=== PATIENT | male | born 1975 | race Caucasian/White ===

== ENCOUNTER 2016-09-05 09:58 | Emergency (ER) | payer BC ==
[2016-09-05 10:07] VITALS: O2SAT 98
[2016-09-05] MEDS ORDERED: TORAdol 30 mg Injection IM ONE (10:14)
[2016-09-05] MEDS ORDERED: Norflex 60 MG/2 ML IM ONE (10:15)
[2016-09-05] MEDS ORDERED: TORAdol 30 mg Injection ONE (10:19)
[2016-09-05] MEDS ORDERED: Norflex 60 MG/2 ML ONE (10:19)
--- NOTE | 2016-09-05 10:21 | ERPHSYRPT ---
- History of Present Illness Time Seen by Provider: 09/05/16 10:15 Source: patient, family Exam Limitations: no limitations Patient Subjective Stated Complaint: rt lower back pain Triage Nursing Assessment: rt lower back pain since last night. states he reached out 'to far' to move a light shelf and twisted. 'it hurts so bad i just laugh' no other injury. no swelling or bruising noted. states when he sits the pain goes down his rt leg. Physician History: rt lower back pain started last night now c/o lots of pain radiate to anterior thigh, unable to be in any comfortable position. rt lower back pain since last night. states he reached out 'to far' to move a light shelf and twisted. 'it hurts so bad i just laugh' no other injury. no swelling or bruising noted. states when he sits the pain goes down his rt leg. Timing/Duration: yesterday Method of Injury: bending, lifting Quality: aching, cramping Back Pain Location: lumbar spine Back Pain Radiation: buttocks, upper legs Severity of Pain-Max: severe Severity of Pain-Current: severe Modifying Factors: Improves With: nothing Associated Symptoms: lower back pain, muscle spasms Previous symptoms: no prior history Allergies/Adverse Reactions: No Known Drug Allergies Allergy (Unverified 09/05/16 10:06) Home Medications: Nebivolol HCl [Bystolic] 5 mg PO DAILY 05/14/14 [History] Hx Tetanus, Diphtheria Vaccination/Date Given: Yes Hx Influenza Vaccination/Date Given: No Hx Pneumococcal Vaccination/Date Given: No Immunizations Up to Date: Yes - Review of Systems Constitutional: No Fever, No Chills Eyes: No Symptoms Ears, Nose, & Throat: No Symptoms Respiratory: No Cough, No Dyspnea Cardiac: No Chest Pain, No Edema, No Syncope Abdominal/Gastrointestinal: No Abdominal Pain, No Nausea, No Vomiting, No Diarrhea Genitourinary Symptoms: No Dysuria Musculoskeletal: Back Pain, No Neck Pain Skin: No Rash Neurological: No Dizziness, No Focal Weakness, No Sensory Changes Psychological: No Symptoms Endocrine: No Symptoms All Other Systems: Reviewed and Negative - Past Medical History Pertinent Past Medical History: Yes Cardiac History: Hypertension - Past Surgical History Past Surgical History: Yes Gastrointestinal: Hemorrhoidectomy - Social History Smoking Status: Never smoker Exposure to second hand smoke: No Drug Use: none Patient Lives Alone: No - Nursing Vital Signs Temperature: 98.1 F Temperature Source: Oral Pulse Rate: 67 Respiratory Rate: 18 Pain Intensity: 10 - Physical Exam General Appearance: no apparent distress, alert Eye Exam: PERRL/EOMI, eyes nml inspection Neck Exam: normal inspection, non-tender, supple, full range of motion, No meningismus, No midline tenderness Respiratory Exam: normal breath sounds, lungs clear, No respiratory distress Cardiovascular Exam: regular rate/rhythm, normal heart sounds Gastrointestinal Exam: soft, No tenderness, No mass Back Exam: decreased range of motion, muscle spasm Extremity Exam: normal inspection, normal range of motion, No calf tenderness, No pedal edema Neurologic Exam: alert, oriented x 3, cooperative, 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 tested, normal mood/affect, nml station & gait, sensation nml, No motor deficits Skin Exam: normal color, warm, dry, No rash SpO2: 98 Oxygen Delivery: Room Air - Course Nursing assessment & vital signs reviewed: Yes Ordered Tests: Medication Summary Discontinued Medications Generic Name Dose Route Start Last Admin Trade Name Bony PRN Reason Stop Dose Admin Ketorolac Tromethamine 60 mg 09/05/16 10:14 Toradol 30 Mg Injection IM 09/05/16 10:15 STAT ONE Ketorolac Tromethamine Confirm 09/05/16 10:19 Toradol 30 Mg Injection Administered 09/05/16 10:20 Dose 60 mg .ROUTE .STK-MED ONE Orphenadrine Citrate 60 mg 09/05/16 10:15 Norflex 60 Mg/2 Ml IM 09/05/16 10:16 STAT ONE Orphenadrine Citrate Confirm 09/05/16 10:19 Norflex 60 Mg/2 Ml Administered 09/05/16 10:20 Dose 60 mg .ROUTE .STK-MED ONE - Progress Progress: improved, pain not gone completely Counseled pt/family regarding: diagnosis, need for follow-up - Departure Time of Disposition: 10:18 Departure Disposition: Home Clinical Impression: Lumbalgia Qualifiers: Chronicity: acute Back pain laterality: right Sciatica presence: with sciatica Sciatica laterality: sciatica of right side Qualified Code(s): M54.41 - Lumbago with sciatica, right side Condition: Stable Critical Care Time: No Referrals: HIRAM HERNANDEZ MD [Primary Care Provider] - Instructions: Low Back Pain, Back Pain With Sciatica Additional Instructions: BACK INJURY 1. May apply moist heat frequently for relief of pain. Take care not to burn the skin. Do not use heat for more than 30 minutes at a time. 2. Try to sleep on a firm bed, flat on your back. 3. If no improvement is noticed in 2-3 days, follow up with your family physician. 4. If you notice any numbness, tingling, weakness, or problems with your bowel or bladder, you should call your family physician or return to the emergency department.take your meds as prescribed, follow up with your primary care physician in 2-3 days if not better Forms: Work/School Release Form Prescriptions: Cyclobenzaprine HCl 10 mg PO TID #30 tablet Naproxen 375 mg [Naprosyn 375 mg] 375 mg PO Q8H #30 tablet
[2016-09-05 10:46] VITALS: BP 141/75; PULSE 68
== END 2016-09-05 10:44 | disposition home or self-care (01) ==
LOC: ED 09:58
DX: M54.41 Lumbago with sciatica, right side (principal); M54.5 Low back pain; M62.830 Muscle spasm of back; I10 Essential (primary) hypertension
CPT/HCPCS: 96372; 99284; J1885; J2360

== ENCOUNTER 2017-05-16 16:49 | Emergency (ER) | payer BC ==
[2017-05-16] MEDS ORDERED: Sodium Chloride 0.9% 1000 ML 1,000 ML IV STA ×2 (17:09→17:12)
--- NOTE | 2017-05-16 17:17 | ERPHSYRPT ---
- History of Present Illness Time Seen by Provider: 05/16/17 17:02 Source: patient Exam Limitations: no limitations Patient Subjective Stated Complaint: Pt states "When I woke up this morning my heart feels like it is racing and I thought I should get it checked out." Triage Nursing Assessment: Pt alert and oriented X 3, skin pwd. Pt ambulates with an upright steady gait, able to speak in clear full sentences. No apparent respiratory distress. Physician History: PT STATES WHEN HE GOT UP FROM SLEEPING ABOUT 4 HOURS AGO HE NOTICED HIS HEART RATE WAS FAST AND HE WAS SLIGHTLY SHORT OF AIR; DENIES CHEST PAIN, FEVER, ABDOMINAL PAIN, NAUSEA, VOMITING, DIAPHORESIS; ADMITS TO A HEADACHE FOR THE PAST 2 WEEKS. Allergies/Adverse Reactions: No Known Drug Allergies Allergy (Unverified 09/05/16 10:06) Home Medications: Nebivolol HCl [Bystolic] 5 mg PO DAILY 05/14/14 [History] Lisdexamfetamine Dimesylate [Vyvanse] 30 mg PO DAILY 05/16/17 [History] Hx Tetanus, Diphtheria Vaccination/Date Given: Yes Hx Influenza Vaccination/Date Given: No Hx Pneumococcal Vaccination/Date Given: No Immunizations Up to Date: Yes - Review of Systems Constitutional: No Fever Respiratory: Dyspnea Cardiac: Other (TACHYCARDIA) Abdominal/Gastrointestinal: No Abdominal Pain, No Nausea, No Vomiting Neurological: Headache Endocrine: No Excessive Sweating All Other Systems: Reviewed and Negative - Past Medical History Pertinent Past Medical History: Yes Cardiac History: Hypertension - Past Surgical History Past Surgical History: Yes Gastrointestinal: Hemorrhoidectomy - Social History Smoking Status: Former smoker Exposure to second hand smoke: No Drug Use: none Patient Lives Alone: No - Nursing Vital Signs Nursing Vital Signs: Initial Vital Signs Temperature 97.7 F 05/16/17 16:53 Pulse Rate 92 H 05/16/17 16:53 Respiratory Rate 16 05/16/17 16:53 Blood Pressure 116/77 05/16/17 16:53 O2 Sat by Pulse Oximetry 97 05/16/17 16:53 Pain Scale Pain Intensity 0 - Physical Exam General Appearance: alert Eye Exam: PERRL/EOMI Ears, Nose, Throat Exam: TMs normal, pharynx normal, dry mucous membranes Neck Exam: normal inspection Respiratory Exam: lungs clear Cardiovascular Exam: normal heart sounds Gastrointestinal/Abdomen Exam: soft, normal bowel sounds Extremity Exam: normal inspection, No pedal edema Neurologic Exam: alert, cooperative Skin Exam: warm, dry SpO2 Interpretation: normal SpO2: 97 Oxygen Delivery: Room Air - Course Nursing assessment & vital signs reviewed: Yes EKG Interpreted by Me: RATE ([id number]), Sinus Tach, NORMAL AXIS, NORMAL QRS - Radiology Exams Chest X-ray Interpretation: Interpreted by me, No Pneumonia Ordered Tests: Active Orders 24 hr Category Date Time Status 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 Care 05/16/17 17:10 Active EKG-ER Only STAT Care 05/16/17 17:09 Active IV Insertion STAT Care 05/16/17 17:09 Active Oxygen-ED Only NASAL CANNULA 2 lpm Care 05/16/17 17:09 Active Pulse Oximetry (ED) STAT Care 05/16/17 17:09 Active CHEST 2 VIEWS (PA AND LAT) Stat Exams 05/16/17 17:10 Taken HEAD WITHOUT CONTRAST [CT] Stat Exams 05/16/17 17:26 Taken AMYLASE Urgent Lab 05/16/17 16:15 Completed CBC W DIFF Stat Lab 05/16/17 16:15 Completed CMP Urgent Lab 05/16/17 16:15 Completed D-DIMER QUANTITATION Stat Lab 05/16/17 16:15 Completed LIPASE Urgent Lab 05/16/17 16:15 Completed MAGNESIUM Urgent Lab 05/16/17 16:15 Completed NT PRO BNP Urgent Lab 05/16/17 16:15 Completed PROTIME WITH INR Stat Lab 05/16/17 16:15 Completed PTT Stat Lab 05/16/17 16:15 Completed T4 Urgent Lab 05/16/17 16:15 Completed TROPONIN Q3H Lab 05/16/17 16:15 Completed TROPONIN Q3H Lab 05/16/17 20:15 Ordered TROPONIN Q3H Lab 05/16/17 23:15 Ordered TROPONIN Q3H Lab 05/17/17 02:15 Ordered TROPONIN Q3H Lab 05/17/17 05:15 Ordered TSH, 3RD Generation Urgent Lab 05/16/17 16:15 Completed UA W/RFX UR CULTURE Stat Lab 05/16/17 17:09 Ordered Urine Triage Profile Stat Lab 05/16/17 17:11 Ordered Medication Summary Discontinued Medications Generic Name Dose Route Start Last Admin Trade Name Freq PRN Reason Stop Dose Admin Hydromorphone HCl 1 mg 05/16/17 17:23 Hydromorphone 1 Mg/Ml Ampule IV 05/16/17 17:24 STAT ONE Hydromorphone HCl Confirm 05/16/17 17:29 Hydromorphone 1 Mg/Ml Ampule Administered 05/16/17 17:30 Dose 1 mg .ROUTE .STK-MED ONE Sodium Chloride 1,000 mls @ 999 mls/hr 05/16/17 17:09 05/16/17 17:51 Sodium Chloride 0.9% 1000 Ml IV 05/16/17 18:09 999 mls/hr .Q1H1M STA Administration Sodium Chloride 1,000 mls @ 999 mls/hr 05/16/17 17:12 Sodium Chloride 0.9% 1000 Ml IV 05/16/17 18:12 .Q1H1M STA Sodium Chloride Confirm 05/16/17 17:29 Sodium Chloride 0.9% 1000 Ml Administered 05/16/17 17:30 Dose 2,000 mls @ ud .ROUTE .STK-MED ONE Promethazine HCl 12.5 mg 05/16/17 17:23 Phenergan 25 Mg Inj IV 05/16/17 17:24 STAT ONE Promethazine HCl Confirm 05/16/17 17:29 Phenergan 25 Mg Inj Administered 05/16/17 17:30 Dose 25 mg .ROUTE .STK-MED ONE Lab/Rad Data: Laboratory Result Diagrams 05/16/17 16:15 05/16/17 16:15 Laboratory Results 05/16/17 05/16/17 05/16/17 Range/Units 16:15 16:15 16:15 WBC 6.2 (4.0-10.5) K/mm3 RBC 4.88 (4.1-5.6) M/mm3 Hgb 15.1 (12.5-18.0) gm/dl Hct 44.1 (42-50) % MCV 90.4 (78-100) fl MCH 30.9 (26-32) pg MCHC 34.2 (32-36) g/dl RDW 12.2 (11.5-14.0) % Plt Count 196 (150-450) K/mm3 MPV 10.9 H (6-9.5) fl Gran % 57.9 (36.0-66.0) % Lymphocytes % 30.9 (24.0-44.0) % Monocytes % 8.4 (0.0-12.0) % Eosinophils % 2.3 (0.00-5.0) % Basophils % 0.5 (0.0-0.4) % Basophils # 0.03 (0-0.4) INR 0.99 (0.8-3.0) APTT 26.5 (24.1-36.1) SECONDS D-Dimer < 215 (0-500) ng/mL Sodium 143 (136-145) mEq/L Potassium 4.4 (3.5-5.1) mEq/L Chloride 106 (98-107) mEq/L Carbon Dioxide 28.1 (21-32) mEq/L Anion Gap 13.7 (5-15) MEQ/L BUN 10 (9-20) mg/dL Creatinine 1.03 (0.55-1.30) mg/dl Estimated GFR > 60 ML/MIN Glucose 99 (70-110) MG/DL Calcium 9.0 (8.5-10.1) mg/dL Magnesium 1.9 (1.8-2.4) mg/dL Total Bilirubin 0.40 (0.2-1.0) mg/dL AST 35 (15-37) U/L ALT 53 (12-78) U/L Alkaline Phosphatase 74 (46-116) U/L Troponin I < 0.017 (0.000-0.056) ng/ml NT-Pro-B Natriuret Pep 75 (0-125) pg/ml Serum Total Protein 7.0 (6.4-8.2) gm/dL Albumin 4.0 (3.4-5.0) g/dL Amylase 35 (25-115) U/L Lipase 209 (73-393) U/L Thyroxine (T4) 6.8 (4.7-13.3) UG/DL TSH 3rd Generation 2.073 (0.358-3.740) mIU/L - Departure Time of Disposition: 18:38 Departure Disposition: Home Clinical Impression: TACHYCARDIA - RESOLVED Condition: Stable Critical Care Time: No Referrals: HIRAM HERNANDEZ MD [Primary Care Provider] - Instructions: Tachycardia Additional Instructions: STOP VYVANSE. AVOID CAFFEINE. FOLLOW UP WITH PRIVATE DOCTOR TOMORROW.
[2017-05-16] MEDS ORDERED: Hydromorphone 1 mg/ml Ampule IV ONE (17:23)
[2017-05-16] MEDS ORDERED: Phenergan 25 MG INJ IV ONE (17:23)
[2017-05-16] MEDS ORDERED: Sodium Chloride 0.9% 1000 ML 2,000 ML ONE (17:29)
[2017-05-16] MEDS ORDERED: Hydromorphone 1 mg/ml Ampule ONE (17:29)
[2017-05-16] MEDS ORDERED: Phenergan 25 MG INJ ONE (17:29)
[2017-05-16 17:51] LABS: BASOPHIL % 0.5 % (0.0-0.4); Basophil (Absolute #) 0.03 (0-0.4); Eosinophil % 2.3 % (0.00-5.0); Eosinophil (Absolute #) 0.14 (0-0.5); Granulocyte Absolute (ANC) 3.58 (1.4-6.9); Granulocytes % 57.9 % (36.0-66.0); Hematocrit 44.1 % (42-50); Hemoglobin 15.1 gm/dl (12.5-18.0); Lymphocyte (Absolute #) 1.91 (1.0-4.6); Lymphocytes % 30.9 % (24.0-44.0); Mean Cell Volume 90.4 fl (78-100); Mean Corpuscular Hemoglobin 30.9 pg (26-32); Mean Corpuscular Hgb Concent. 34.2 g/dl (32-36); Mean Platelet Volume 10.9 fl (6-9.5); Monocyte (Absolute #) 0.52 (0.0-1.3); Monocytes % 8.4 % (0.0-12.0); Platelet Count 196 K/mm3 (150-450); Red Blood Count 4.88 M/mm3 (4.1-5.6); Red Cell Distribution Width 12.2 % (11.5-14.0); White Blood Count 6.2 K/mm3 (4.0-10.5)
[2017-05-16 17:53] LABS: INR 0.99 (0.8-3.0)
[2017-05-16 17:55] LABS: PTT 26.5 SECONDS (24.1-36.1)
[2017-05-16 18:13] LABS: D-DIMER QUANTITATION < 215 ng/mL (0-500)
[2017-05-16 18:20] LABS: ALKALINE PHOSPHATASE 74 U/L (46-116); AMYLASE 35 U/L (25-115); ANION GAP 13.7 MEQ/L (5-15); BLOOD UREA NITROGEN 10 mg/dL (9-20); CHLORIDE 106 mEq/L (98-107); Carbon Dioxide 28.1 mEq/L (21-32); Creatinine 1 1.03 mg/dl (0.55-1.30); EST GLOMERULAR FILTRATION RATE > 60 ML/MIN; Glucose 99 MG/DL (70-110); LIPASE 209 U/L (73-393); MAGNESIUM 1.9 mg/dL (1.8-2.4); NT PRO BNP 75 pg/ml (0-125); Potassium 4.4 mEq/L (3.5-5.1); SGOT/AST 35 U/L (15-37); SGPT/ALT 53 U/L (12-78); SODIUM 143 mEq/L (136-145); T4 6.8 UG/DL (4.7-13.3); TSH, 3RD Generation 2.073 mIU/L (0.358-3.740)
[2017-05-16 18:21] LABS: TROPONIN < 0.017 ng/ml (0.000-0.056)
[2017-05-16 18:47] VITALS: BP 122/72; PULSE 98; O2SAT 98
--- NOTE | 2017-05-16 21:14 | XRAY ---
Indication: Chest pain. Tachycardia. Comparison: None PA/lateral chest demonstrates normal heart, lungs, and bony thorax with incidental scattered calcified granulomas.
--- NOTE | 2017-05-16 21:16 | XRAY ---
Indication: Headache. Tachycardia. Multiple contiguous axial images obtained through the head without contrast. Comparison: None Normal appearing brain parenchyma, ventricles, and bony calvarium. Visualized paranasal sinuses and mastoid air cells are clear. Impression: Normal CT head without contrast exam. Comment: Preliminary interpretation was made by [facility]. No discrepancy. CTDI 70.00
== END 2017-05-16 18:47 | disposition home or self-care (01) ==
LOC: ED 16:49
DX: R00.0 Tachycardia, unspecified (principal); I10 Essential (primary) hypertension; Z79.899 Other long term (current) drug therapy; Z87.891 Personal history of nicotine dependence
CPT/HCPCS: 36000; 36415; 70450; 71046; 80053; 82150; 83690; 83735; 83880; 84436; 84443; 84484; 85025; 85379; 85610; 85730; 93005; 93041; 96360; 99284; J1170; J2550